=== PATIENT | male | born 1965 | race Caucasian/White ===

== ENCOUNTER 2023-01-04 23:48 | Emergency (ER) | payer OTHER, SELFPAY ==
[2023-01-05 00:03] VITALS: BP 181/85; PULSE 85; RESP 18; TEMP 36.7; O2SAT 99; BMI 33.7
--- NOTE | 2023-01-05 00:28 | ED.GENADULT ---
HPI - General Adult General Chief complaint: Extremity Pain/Injury, Upper Stated complaint: Right arm swollen, possible cellulitis Time Seen by Provider: 01/04/23 23:56 History of Present Illness HPI narrative: Right Wrist/Hand Pain pt. thinks he me have gout in wrist. denies injury. cms intact. no redness noted. 57-year-old man presenting with spouse to the emergency department with concern of right wrist/hand/distal forearm area pain and swelling. Sounds like some conversation with family has them concerned about a potential cellulitis. Is a therapist radiation. Right-hand dominant. No fever. Movement generally of his wrist causes a great deal of pain. Then recalls that other joints will swell periodically from time to time especially the right great toe. Sounds like there is a concern of potential gout as well. 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 No specific trauma to the right wrist. Related Data Previous Rx's Medication Instructions Recorded indomethacin 50 mg capsule 50 mg PO TID #15 caps 01/05/23 prednisone 20 mg tablet See Rx Instructions .Route 01/05/23 .COMPLEX #17 tabs Allergies Allergy/AdvReac Type Severity Reaction Status Date / Time No Known Drug Allergies Allergy Verified 01/05/23 00:06 Review of Systems Status of ROS: Reports: 6 or more systems reviewed and unremarkable except as noted in History and below [facility] Medical History No significant past medical history Surgical History (Updated 01/05/23 @ 02:05 by Александр Cano RN) No significant past surgical history Social History Smoking Status: Never smoker Second hand tobacco smoke exposure: No How often do you have a drink containing alcohol: never How often do you have six or more drinks on one occasion: Never AUDIT-C Alcohol total score: 0 Non-prescribed substance use: denies use Exam Narrative: Exam Narrative: Pleasant. Calm. Breathing easily. Well perfused peripherally. Skin is warm and dry. Mildly more warm over the dorsum right wrist and into hand a little bit. Well perfused peripherally. Pronation especially of the right forearm causes more pain. There is mild swelling in the dorsum of the wrist. Tender to palpation here too. Positive Prudence's was on my initial assessment most obvious finding. And tenderness around the base of the thumb. There is not induration or marked calor of the skin. Superficial fine crack in the skin on the thumb but without surrounding redness. Const: Vital Signs, click to edit/add: Vital Signs - 24 hr 01/05/23 00:03 01/05/23 02:07 01/05/23 02:09 Temperature 98.0 F 98.2 F 98.2 F Pulse Rate [Right Pulse Oximeter] 85 79 79 Respiratory Rate 18 18 18 Blood Pressure [Ri ght Upper Arm] 181/85 H 135/74 135/74 Pulse Oximetry 99 99 Oxygen Delivery Me thod Room Air Room Air Documenting provider has reviewed patient's vital signs: yes Course Vital Signs Vital signs: Initial Vital Signs Temperature 98.0 F 01/05/23 00:03 Temperature Source Temporal Artery Scan 01/05/23 00:03 Pulse Rate 85 01/05/23 00:03 Respiratory Rate 18 01/05/23 00:03 Blood Pressure 181/85 H 01/05/23 00:03 Blood Pressure Mean 117 H 01/05/23 00:03 Blood Pressure Position Sitting 01/05/23 00:03 Pulse Oximetry 99 01/05/23 00:03 Oxygen Delivery Method Room Air 01/05/23 00:03 Vital Signs Temperature 98.0 F 01/05/23 00:03 Pulse Rate 85 01/05/23 00:03 Respiratory Rate 18 01/05/23 00:03 Blood Pressure 181/85 H 01/05/23 00:03 Pulse Oximetry 99 01/05/23 00:03 Oxygen Delivery Method Room Air 01/05/23 00:03 Temperature 98.2 F 01/05/23 02:09 Pulse Rate 79 01/05/23 02:09 Respiratory Rate 18 01/05/23 02:09 Blood Pressure 135/74 01/05/23 02:09 Pulse Oximetry 99 01/05/23 02:07 Oxygen Delivery Method Room Air 01/05/23 02:07 Medical Decision Making MDM Narrative Medical decision making narrative: Initially I did feel that this is more de Quervain tenosynovitis. Managed to locate a thumb spica splint which looks to have been almost too tender to place. There does appear to be some wrist involvement beyond just the thumb area. We decided to check some labs as they still have concern of cellulitis definitely lower on my differential but potential gouty flare. Labs were overall reassuring with a normal uric acid as well. Given 50 mg of indomethacin in the emergency department. Anticipating splinting and indomethacin outpatient. Handout on de Quervain tenosynovitis given. Prednisone would be another option for sure. Is uncomfortable enough that opiates could be an option especially overnight. His preference is for cyclobenzaprine noting that has worked for him in the past for his back. See patient discharge plan. Lab Data Lab results reviewed: Yes I reviewed the patient's lab results Labs: Lab Results 01/05/23 Range/Units 00:35 WBC 6.43 (4.50-11.00) K/uL RBC 3.97 L (4.30-5.90) m/uL Hgb 12.7 L (13.5-17.5) gm/dL Hct 38.3 (37.0-53.0) % MCV 97 (80-100) fL MCH 32 (26-34) pg MCHC 33 (32-36) gm/dL RDW Coeff of Arvind 14.0 (11.5-15.5) % Plt Count 233 (140-440) K/uL Neut % (Auto) 71.6 (42.0-72.0) % Lymph % (Auto) 16.8 L (20-44) % [place] % (Auto) 7.5 (0.0-11.0) % Eos % (Auto) 3.0 (0.0-7.0) % Baso % (Auto) 0.2 (0.0-3.0) % Neut # (Auto) 4.61 (1.7-7.0) K/uL Lymph # (Auto) 1.10 (0.90-2.90) K/uL [place] # (Auto) 0.50 (0.00-0.90) K/UL Eos # (Auto) 0.19 (0.00-0.50) K/uL Baso # (Auto) 0.01 (0.00-0.30) K/uL Sodium 137 (135-149) mmol/L Potassium 3.8 (3.6-5.1) mmol/L Chloride 106 (96-114) mmol/L Carbon Dioxide 25 (20-32) mmol/L BUN 14 (7-30) mg/dL Creatinine 0.9 (0.5-1.5) mg/dL Estimated Creat Clear 93.50 Estimated GFR 100 ml/min Glucose 135 H (60-115) mg/dL Uric Acid 7.5 (2.2-8.4) mg/dL Calcium 8.3 L (8.4-10.6) mg/dL Discharge Plan Discharge Clinical Impression: De Quervain's syndrome (tenosynovitis), Right wrist pain Condition: Stable Additional Instructions: See handout on the tenosynovitis. I would try to, for comfort, wear this splint most of the time over the next week or so. If not improved in 7-10 days follow-up for next steps in plan/diagnosis which may or may not include some injections. If you want to be seen by Orthopedics phone number is [phone] Take the indomethacin with little bit of food. Can combine this with acetaminophen if you want just not ibuprofen at the same time dosing. Cyclobenzaprine from [facility] I would also send in a course of prednisone if not improving in a couple of days. Prescriptions: New indomethacin 50 mg capsule 50 mg PO TID Qty: 15 0RF Rx Instructions: administer with food or milk prednisone 20 mg tablet See Rx Instructions .ROUTE .COMPLEX Qty: 17 0RF Rx Instructions: Take 60 mg daily for 2 days, 40 mg daily for 4 days, 20 mg daily for 3 days. Follow Up/Referrals: Provider,Not a Local [Primary Care Provider] - Stand Alone Forms: [employer] Info Instructions
[2023-01-05 00:47] LABS: Basophils Absolute Auto 0.01 K/uL (0.00-0.30); Basophils Percent Auto 0.2 % (0.0-3.0); Eosinophils Absolute Auto 0.19 K/uL (0.00-0.50); Hematocrit 38.3 % (37.0-53.0); Hemoglobin* 12.7 gm/dL (13.5-17.5); Immature Granulocytes Abs Auto 0.06 K/uL (0.00-0.30); Immature Granulocytes Pct Auto 0.9 %; Lymphocytes Percent Auto 16.8 % (20-44); Mean Corpuscular HGB Conc 33 gm/dL (32-36); Mean Corpuscular Hemoglobin 32 pg (26-34); Mean Corpuscular Volume 97 fL (80-100); Monocytes Percent Auto 7.5 % (0.0-11.0); Neutrophils Absolute Auto 4.61 K/uL (1.7-7.0); Neutrophils Percent Auto 71.6 % (42.0-72.0); Platelet Count* 233 K/uL (140-440); Red Blood Count 3.97 m/uL (4.30-5.90); White Blood Count* 6.43 K/uL (4.50-11.00)
[2023-01-05 00:50] LABS: Slide Review Reflex No
[2023-01-05] MEDS: INDOMETHACIN 25 MG CAPSULE 50 MG PO (00:57)
[2023-01-05 01:00] LABS: Chloride* 106 mmol/L (96-114); Potassium* 3.8 mmol/L (3.6-5.1); Sodium* 137 mmol/L (135-149)
[2023-01-05 01:03] LABS: Blood Urea Nitrogen* 14 mg/dL (7-30); Calcium* 8.3 mg/dL (8.4-10.6); Carbon Dioxide* 25 mmol/L (20-32); Creatinine* 0.9 mg/dL (0.5-1.5); Estimated Glomerular Filt Rate 100 ml/min; Glucose* 135 mg/dL (60-115); Uric Acid* 7.5 mg/dL (2.2-8.4)
[2023-01-05 02:07] VITALS: BP 135/74; PULSE 79; RESP 18; TEMP 36.8; O2SAT 99
[2023-01-05 02:09] VITALS: BP 135/74; PULSE 79; RESP 18; TEMP 36.8
== END 2023-01-05 02:09 | disposition home or self-care (01) ==
PROVIDERS: Emergency Provider Family Medicine
DX: M65.4 Radial styloid tenosynovitis [de Quervain] (principal)
CPT/HCPCS: 36415; 80048; 84550; 85025; 99283; A9270